=== PATIENT | female | born 1955 | race Caucasian/White ===

== ENCOUNTER 2016-10-12 14:17 | Emergency (ER) | payer OTHER | END 2016-10-12 14:45 | disposition home or self-care (01) | LOC: ER 14:17 | DX: J06.9 Acute upper respiratory infection, unspecified (principal); Z88.5 Allergy status to narcotic agent; Z88.6 Allergy status to analgesic agent; Z88.8 Allergy status to other drugs, medicaments and biological substances | CPT/HCPCS: 96372; 99283; J2930 ==

== ENCOUNTER 2016-10-20 16:08 | Inpatient (IN) | payer OTHER ==
--- NOTE | ~2016-10-20 | CN ---
Consultation Report [facility] [address] [place]. [address] NAME: HOLLI EDGAR : 57 STATUS : ADM IN [facility]#: [id number] AGE: 61 ADM/REG DATE : 10/20/16 MR#: [id number] REPORT SERV DATE: 10/23/16 DICTATED BY: BRADY BARDALES DATE: 10/22/16 REPORT STATUS : Draft TRANSCRIBED BY: MODAriana DATE: 10/22/16 INFECTIOUS DISEASE CONSULT DATE OF CONSULTATION: REASON FOR CONSULT: Meningitis. HISTORY OF PRESENT ILLNESS: A 61-year-old white lady with remote history of seizure disorder, recent sacral spine stimulator for bladder incontinence, was admitted for multiple seizures, suspected status epilepticus. The patient is not a good historian. She does not remember well recent events. I reviewed the chart. I discussed also with her who also is vague regarding also some recent illness. She has been followed up by Dr. Shahid for her history of seizure disorder, but she has not had any seizures in a long time. She does take Keppra. She also tells me she had a hysterectomy in the past because she did not want to be and she takes hormone shots, Depo-Estradiol. The last shot was at the beginning of the month. Maybe about a month ago, she had this procedure for the urine incontinence. It appears that she had a sacral spine stimulator. This was done in [place], [place]. Also recently, she had a "cold." I cannot obtain any details. When asked the patient, she recalls absolutely no symptoms of a cold, but her remembers her complaining of being congested and maybe having a sore throat. She was in the emergency room here at [facility] on the 10/12, with "sinus congestion." She was given 125 mg of methylprednisolone and a prescription for Flonase. There are no investigations at that time. She went to the emergency room apparently because her mother was hospitalized here also with a "cold." She went to see her PCP in [place], [place] around the 10/16 because she was not feeling better and she was given a "two-in-one shot". The day before admission, she started complaining of headache which she tells me was bitemporal. The next day, she started having seizures at home and then in the emergency room she, maybe, vomited once. She was admitted and started on antiepileptic. She also had a dose of Decadron and Dr. Hector with Neurology once had treated her empirically for meningitis. So, she was prescribed acyclovir IV high dose, Rocephin, Zosyn. When I questioned the patient, she reported no symptoms beside a headache. She has specifically reported no fever, no cough, no sore throat, no runny nose, no abdominal pain, no diarrhea or constipation, no dysuria, no skin lesions. Upon admission, laboratory work showed WBC of 19 with no manual differential done, hemoglobin 14, platelets 380,000. Sodium 138, CO2 26, creatinine 0.8. Ammonia 46. Urinalysis with just some proteins. Urine drug screen negative. Chest x-ray, no obvious infiltrates were to support above films. CT of the head without any obvious acute findings. Consultation Report [facility] [address] [place]. [address] NAME: HOLLI EDGAR : 57 STATUS : ADM IN [facility]#: [id number] AGE: 61 ADM/REG DATE : 10/20/16 MR#: [id number] REPORT SERV DATE: 10/23/16 DICTATED BY: BRADY BARDALES DATE: 10/22/16 REPORT STATUS : Draft TRANSCRIBED BY: JOSE MIGUEL DATE: 10/22/16 An LP could not be done until today and was done in Radiology. The first two tubes were clear but on the third because of some patient movement there is some blood. Initially, the cell count was done perhaps from this tube because it showed 19,000 red blood cells and some blood clots and about 208 white blood cells. I asked for a repeat, and it was done from the second tube and it showed 160 white blood cells, with 93% lymphocytes, opening pressure was 19 cm. Red blood cell count in this tube was just 7. Lymphocytes 93%. In the tube 3, the protein was 72, glucose 58 and gram stain showed occasional white blood cells, no organisms. PAST MEDICAL HISTORY: As I mentioned above plus hypertension. She is edentulous. She had a previous implant on her bladder or spine, I am not sure. There is no history of TB. No history of STDs or history of HIV. FAMILY HISTORY: Cancer and heart disease. ALLERGIES: THERE ARE SEVERAL THINGS LISTED IN THE CHART BUT WITHOUT DETAILS OF THE TYPE OF REACTION THAT INCLUDED ASPIRIN, PHENYTOIN, ROBITUSSIN, DIAZEPAM, CODEINE, HYDROCODONE, HYDROCODONE AND GIVEN BENADRYL. MEDICATIONS ON ADMISSION: Interestingly Cipro is listed with a start date of the 10/09, but when I questioned the patient or the they do not recall any antibiotics. I do not know if she really took it. Also listed are diltiazem, Percocet, promethazine, Keppra, Depo Estradiol, and Bactroban ointment. SOCIAL HISTORY: She lives with her and two dogs. She reports no dog bite. Initially, she told me she does not work outdoors but her said she worked on her flower garden. There is no recent travel. No smoking, alcohol, or drugs. The states that there are several sick people at their rastafari. They do not recall any presence of rodents or rodent droppings. The patient reports not eating any raw foods. No exposure to pets, to mosquitos, or ticks. PHYSICAL EXAMINATION: GENERAL: Exam done in presence of female nurse. The patient is alert and awake. She knows the date. She knows she is at [facility]. HEENT: She is edentulous. No oral mucosal lesions were seen. She has some mucus in the right nostril. She has wax in her right ear and the left ear is clean. Extraocular movements of the eyes are intact. She moves all four extremities. No facial asymmetry. No cervical adenopathy. NECK: Supple. LUNGS: Clear to auscultation. No wheezes, rhonchi, or rales. HEART: Regular rhythm without murmurs. ABDOMEN: Soft, nontender. : Nurse reports no genitalia lesions. On the right buttock, she has the pocket of her stimulator device. There is no drainage or dehiscence or swelling or redness. Feet and hands without lesions. Consultation Report [facility] [address] [place]. [address] NAME: HOLLI EDGAR : 57 STATUS : ADM IN [facility]#: [id number] AGE: 61 ADM/REG DATE : 10/20/16 MR#: [id number] REPORT SERV DATE: 10/23/16 DICTATED BY: BRADY BARDALES DATE: 10/22/16 REPORT STATUS : Draft TRANSCRIBED BY: RUFUSL DATE: 02/24/17 LAB WORK: Today creatinine 0.7. WBC 18, hemoglobin 12. ASSESSMENT AND PLAN: 1. Lymphocytic meningitis. 2. Recent multiple seizures with a remote history of seizures. 3. Recent "cold." It is unclear what type of symptoms she describes the congestion. She got the high dose of Solu-Medrol on the 10/10 and then another dose of what sounds like a combination of short and long-acting steroids on the 10/16 plus a steroid spray. 4. She has a recent procedure for bladder incontinence which what sounds like a sacral spine stimulator. DIFFERENTIAL DIAGNOSES: Based on the available data, it seems less likely to indicate a bacterial meningitis. Could be a viral infection including herpes simplex. Also have to consider the relationship with a recent procedure with a parameningeal source although seems less obvious based on exam. Fungal, mycobacterial, or parasitic infection seem less likely. I have to consider noninfectious etiologies such as secondary to medications including antiepileptics or anti-inflammatories. A CT scan of the head did not indicate any presence of sinus disease. Antibiotic-walden, we will continue the acyclovir. We will request additional studies from the CSF and an MRI of the lumbosacral spine. I discussed with the and the nurse. Time spent about two hours. ANUSHKA/JOSE MIGUEL Brady Bardales M.D. / [id number] CC: Anita Pacheco M.D.
--- NOTE | ~2016-10-20 | DS ---
Discharge Summary [facility] [address] [place]. [address] NAME: HOLLI EDGAR : 57 STATUS : DIS IN PAT#: [id number] AGE: 61 ADM/REG DATE : 10/20/16 MR#: [id number] REPORT SERV DATE: 10/29/16 DICTATED BY: ROXANNA SANFORD DATE: 10/28/16 REPORT STATUS : Draft TRANSCRIBED BY: MODL DATE: 10/28/16 ADMISSION DATE: 10/20/2016 DISCHARGE DATE: 10/28/2016 HISTORY OF PRESENT ILLNESS: The patient is a 60-year-old female with a history of hypertension, who presented to the hospital status post a seizure episode. The patient was subsequently admitted on the Hospitalist Service for further management. For further details, please refer to H and P dictated by Dr. Germain on 10/20/2016. HOSPITAL COURSE: Upon presenting in the emergency room, the patient was admitted on the Hospitalist Service for further management. Upon presenting to the emergency room, the patient went into status epilepticus. Status post this activity, Neurology was consulted as was Infectious Disease. Please for further details, refer to consultation notes by Dr. Batista of Infectious Disease dictated on 10/23/2016 and also consultation note by Neurology dictated on 10/20/2016. During hospital course, per weight loss sales consultant's recommendation, the patient subsequently had a lumbar puncture, which came back negative. Also, HSV was ordered, which also came back negative. Neurology, which followed the patient, started the patient on Vimpat 200 mg daily and also increased her Keppra dose to 6500 mg daily. Status post these changes, the patient has not had further seizure episodes during this hospitalization. The patient has been followed by Neurology and Infectious Disease. From Infectious Disease standpoint, the patient was diagnosed with lymphocytic meningitis. Workup has so far been negative. Repeat CT scan of the brain returned negative. Given completion of workup, Neurology has signed off clearing the patient for discharge. Given also negative workup by Infectious Disease, Infectious Disease has cleared the patient for discharge with plans to see the patient in the outpatient setting in one to two weeks. Given completion of workup, given her hemodynamic stability, and given resolution of her seizure activity, the patient will be discharged home today. Plan has been discussed with the patient, who voices understanding and is agreeable with this plan. DISCHARGE DIAGNOSES: 1. Lymphocytic meningitis. 2. Status epilepticus. 3. Seizure disorder. 4. Hypertension. DISCHARGE EXAM: GENERAL: The patient lying in bed, in no acute distress. Appears stated age. HEENT: Normocephalic, atraumatic. Extraocular motors intact. Moist oral mucosa. Anicteric sclerae. Pupils round and reactive to light and accommodation. NECK: Trachea midline and symmetric. No JVD noted. No thyromegaly present. CHEST: No scars noted. Nontender to palpation. CARDIOVASCULAR: Regular rate and rhythm. S1, S2. No murmurs, rubs, or gallops. LUNGS: Clear to auscultation bilaterally. ABDOMEN: Positive bowel sounds. Nontender. Nondistended. Soft and flat. EXTREMITIES: No cyanosis, no clubbing, no edema. NEURO: Alert and oriented x3. No focal deficits appreciated. Discharge Summary [address] [place]. [address] NAME: HOLLI EDGAR : 57 STATUS : DIS IN PAT#: [id number] AGE: 61 ADM/REG DATE : 10/20/16 MR#: [id number] REPORT SERV DATE: 10/29/16 DICTATED BY: ROXANNA SANFORD DATE: 10/28/16 REPORT STATUS : Draft TRANSCRIBED BY: JOSE MIGUEL DATE: 10/28/16 CONSULTANTS: Dr. Batista of Infectious Disease and Dr. Talbert of Neurology. IMAGING: Brain CT with contrast, impression, suspected dural-based nodule in the right posterior fossa. This may be partial volume averaging with the right lateral sinus, but further evaluation with MRI with contrast was in the differential. Consideration includes small meningioma. No intraaxial mass suspected. CT brain without contrast on presentation, impression, mild cerebral atrophy. No acute intracranial process including acute intracranial hemorrhage. PROCEDURES: Lumbar puncture was performed. DISPOSITION: The patient will be discharged home to follow up with Neurology, Infectious Disease, and primary care physician as outpatient. ACTIVITY: As tolerated. DIET: Low-salt diet. Greater than 30 minutes was spent on medication reconciliation, dictation of note, coordination of care, and planning the discharge. CHERYL Roxanna Sanford MD / [id number] CC: MD HARSHA Escalona II
--- NOTE | ~2016-10-20 | EEG ---
Electroencephalogram [facility] [address] [place]. [address] NAME: HOLLI EDGAR : 57 STATUS : ADM IN PAT#: [id number] AGE: 61 ADM/REG DATE : 10/20/16 MR#: [id number] REPORT SERV DATE: 10/22/16 DICTATED BY: DATE: REPORT STATUS : Draft TRANSCRIBED BY: MODL DATE: 10/22/16 NEUROLOGY EEG REPORT CLINICAL INDICATION: Status epilepticus. DESCRIPTION: This EEG was performed using 10/20 electrode placement system. During the EEG study, symmetric background activity was noted with predominant occipital rhythm of roughly 8 hertz. Superimposed mild generalized slowing was seen throughout the EEG study. Otherwise, photic stimulation was performed with appropriate driving response. Hyperventilation was not performed secondary to the patient's medical condition. The patient achieved drowsy state. No focal abnormalities, seizure activity, or seizure discharge was seen during the EEG study. No electrographic seizure was otherwise noted. INTERPRETATION: This EEG study obtained during awake and drowsy state may be considered mildly abnormal secondary to superimposed generalized slowing but otherwise no focal abnormality, seizure activity, or electrographic seizure or seizure discharge was noted during today's EEG study. Negative EEG study does not preclude the diagnosis of seizure disorder. Clinical correlation is recommended. [facility]/MODAriana Gaurav Hector MD / [id number] CC: Willard Menjivar II
--- NOTE | ~2016-10-20 | HP ---
History And Physical [facility] [id number] [facility] [place]. [address] NAME: HOLLI EDGAR : 57 STATUS : REG ER PAT#: [id number] AGE: 60 ADM/REG DATE : 10/20/16 MR#: [id number] REPORT SERV DATE: 10/20/16 DICTATED BY: ELVA FENG DATE: 10/20/16 REPORT STATUS : Draft TRANSCRIBED BY: MODL DATE: 10/20/16 DATE OF ADMISSION: 10/20/2016 The patient is a 60-year-old female, who basically presented to [facility] because of a seizure episode that she initially had at home and then she had subsequently five seizure episodes, some of them were witnessed here in the emergency room, it was a grand mal seizure, and the patient was also complaining of headache before she had that seizure. The seizure started at 8:30 this morning. After seizures, she became lethargic but she is able to open and close her eyes and she is moving. The patient's at the bedside reported that she had seizures 30 years ago, but they were controlled until she started her seizures this morning. She is now, not able to answer any questions. She is lethargic. She will open and close her eyes, but she will not have any other symptoms. PAST MEDICAL HISTORY: Per , history of seizures in the past. The patient of Dr. Shahid. She has history of hypertension. No other cardiac problems. No diabetes. No heart attacks. No strokes in the past. PAST SURGICAL HISTORY: Includes some kind of implant for her urination, maybe spinal stimulator. cannot basically give more history. She also had hysterectomy and bilateral oophorectomy but it was not because of the cancer. SOCIAL HISTORY: No alcohol. No recreational drugs. No smoking. She does not have children. She is disabled. FAMILY HISTORY: Mother had heart problems. Father had history of cancer. ALLERGIES: SHE IS ALLERGIC TO ROBITUSSIN, DIAZEPAM, CODEINE, HYDROCODONE, ASPIRIN, PHENYTOIN, BENADRYL. REVIEW OF SYSTEMS: Unable to perform because the patient is now lethargic, not able to answer any questions. HOME MEDICATION LIST: Pharmacy to review. The patient takes Keppra at home for seizures. PHYSICAL EXAMINATION: GENERAL: Thin female, lethargic, is able to open her eyes and close, but not able to speak. VITAL SIGNS: Blood pressure initially was 201/87 and later on blood pressure was 180/70, temperature 98.7, heart rate 93, respirations 16, and oxygen saturation 97% on room air. HEENT: Head atraumatic, normocephalic. Conjunctivae clear. Pupils are equal and reactive to light. NECK: Supple. Trachea is midline. No supraclavicular or cervical lymphadenopathy. LUNGS: Diminished breath sounds bilaterally. Decreased respiratory effort. CARDIOVASCULAR SYSTEM: Regular rate and rhythm. Point of maximal impulse not displaced. ABDOMEN: Soft, nontender, nondistended. Positive normoactive bowel sounds. EXTREMITIES: No clubbing, cyanosis, or edema. SKIN: Normal color, slightly decreased turgor. History And Physical [address] [address] NAME: HOLLI EDGAR : 57 STATUS : REG ER PAT#: [id number] AGE: 60 ADM/REG DATE : 10/20/16 MR#: [id number] REPORT SERV DATE: 10/20/16 DICTATED BY: ELVA FENG DATE: 10/20/16 REPORT STATUS : Draft TRANSCRIBED BY: JOSE MIGUEL DATE: 10/20/16 NEUROLOGICAL: She is lethargic. She is able to open and close her eyes. Not able to communicate much. LABORATORY RESULTS: Sodium 138, potassium 3.6, chloride 100, carbon dioxide 26, BUN 11, creatinine 0.82, blood sugar 121. White count 19.5, hemoglobin 14.6, hematocrit 42.5, platelet count 382. Urinalysis did not show any evidence of urinary infection. Urine drug screen was negative. Chest x-ray, no acute cardiopulmonary abnormality. CT of the head without contrast showed mild cerebral atrophy. No acute intracranial process. ASSESSMENT AND PLAN: This is a 60-year-old female with a history of seizures in the past, did not have seizures for a long period of time, presented with several episodes of seizures, had a headache before, currently she is lethargic and not able to communicate, but able to open and close her eyes. The patient will need to be observed in [facility] with frequent neuro checks every 1 hour as well as Dr[address] Hector neurologist already saw the patient and she ordered Vimpat intravenously to control her seizures as well as Keppra. She also started the patient on Rocephin and Zosyn and acyclovir. There is a possibility that the patient may be in status epilepticus. Also she wants to do lumbar puncture and she started the patient on antibiotics. Regarding hypertension, we will give her hydralazine as needed if systolic blood pressure will be 160. She will need to have close monitoring in [facility]U. We will also check blood cultures x2 on this patient. My partner will see this patient starting tomorrow morning. MG/MODL Elva Feng M.D. / [id number] CC: John Lopez II
--- NOTE | ~2016-10-20 | CN ---
Consultation Report [facility] [address] [place]. [address] NAME: HOLLI EDGAR : 57 STATUS : ADM IN PAT#: [id number] AGE: 61 ADM/REG DATE : 10/20/16 MR#: [id number] REPORT SERV DATE: 10/21/16 DICTATED BY: DATE: REPORT STATUS : Draft TRANSCRIBED BY: MODL DATE: 10/20/16 DATE OF CONSULTATION: 10/20/2016 TITLE: Neurology Consultation REASON FOR CONSULT: Seizure. HISTORY OF PRESENT ILLNESS: This is a 60-year-old female presented to [facility] on 10/20/2016 secondary to uncontrolled seizure with the patient's reports the patient's seizure occur roughly once every 1 to 1-1/2 hours. Previously, the patient's seizure was well controlled over the past 30 years with the patient being compliant with the seizure medication which was the Keppra. The patient takes a fairly high doses of Keppra 1500 mg p.o. every morning, 1000 mg at noon, and 4000 mg at night. The patient was previously seen by Dr. Madina Shahid with the patient diagnosed with ELENA. The patient previously has had trial of Dilantin, Depakote, and phenobarbital for which the patient's seizure was not well controlled on those medications in the past. The patient's family reports the patient has been sick with upper respiratory infection roughly a week ago with the patient being prescribed with a cough medication and improving symptom, no recent fever was otherwise reported. The patient in between the seizure was not noted to have return to baseline the mental, status with the patient appeared to be lethargic and confused. Otherwise, the family reports the patient has been moving all extremities without significant focal weakness, but generalized weakness was observed. The patient's family denies similar symptoms in the past and denies any other changes in medication other than the recent cough syrup. The patient does complain of a headache overnight prior to hospital presentation, but otherwise no other complaints were noted. The patient does have a bladder stimulator secondary to overactive bladder, but the family is unaware if the device is MRI safe. The patient, otherwise is not taking any other medication besides the Keppra with the family reports the upper respiratory infection has been improving prior to the hospitalization. PAST MEDICAL HISTORY: The patient's past medical history significant for ELENA as well as a bladder stimulator for overactive bladder as well as hypertension. FAMILY HISTORY: Significant for cancer as well as heart disease. SOCIAL HISTORY: She denies tobacco, alcohol, recreational drug usage. ALLERGIES: THE PATIENT WAS NOTED TO HAVE ALLERGY TO ROBITUSSIN, VALIUM, CODEINE, HYDROCODONE, ASPIRIN, DILANTIN, WELL BENADRYL. REVIEW OF SYSTEMS: Unable to be obtained from the patient, but according to family is otherwise negative. PHYSICAL EXAMINATION: Consultation Report [address] [place]. [address] NAME: HOLLI EDGAR : 57 STATUS : ADM IN PAT#: [id number] AGE: 61 ADM/REG DATE : 10/20/16 MR#: [id number] REPORT SERV DATE: 10/21/16 DICTATED BY: DATE: REPORT STATUS : Draft TRANSCRIBED BY: JOSE MIGUEL DATE: 10/20/16 VITAL SIGNS: At time of evaluation, patient was noted to have temperature of 98.7, heart rate of 93, respiration of 16, and blood pressure of 201/87. GENERAL: The patient is a well developed, well nourished, in no acute distress. CARDIOVASCULAR: Regular rate and rhythm. No carotid bruits were otherwise auscultated. Also, carotid bruits were difficult to assess secondary to the patient's positioning. PULMONARY: Clear to auscultation bilaterally. NEUROLOGICAL EXAMINATION: Generally, the patient is obtunded, unable to be aroused, not following commands and minimal verbalization. Severe dysarthria was otherwise noted at time of evaluation. The patient does not follow simple and two-step commands. She is unable to perform registration or recall. Cranial nerves II through XII, pupils equal, round, and reactive to light. At the time of evaluation, left gaze preference was noted on oculocephalic maneuver. The patient was noted to have a horizontal eye movement, blink to threat response was noted to be intact bilaterally. The patient demonstrated a mild facial asymmetry at the time of evaluation, but was noted to have symmetric grimace. Appears to have midline tongue. At the time of evaluation, the patient demonstrated spontaneous movement of the bilateral upper extremities with a semipurposeful movement. The patient also demonstrates spontaneous movement in bilateral lower extremities at the time of evaluation, with the patient demonstrated grimace as well as withdrawal to noxious stimulation in all four extremity. Downgoing toe on bilateral plantar reflexes. Deep tendon reflex was otherwise 2+ throughout. Coordination gait was unable to be evaluated secondary to the patient's current mental status. LABORATORY STUDY: Demonstrates sodium 138, potassium of 3.6, chloride 100, bicarb 26, BUN of 11, creatinine was 0.82, glucose of 121, calcium of 8.9, magnesium of 2.2. White blood cell count of 19.5, hemoglobin of 14.6, hematocrit of 42.5, platelet count of 382. Urinalysis, otherwise demonstrated negative leukocyte esterase, negative nitrite. CT scan of the brain: CT scan of the brain otherwise demonstrated no acute process. Mild generalized atrophy was seen. IMPRESSION: Seizure. Concern for status epilepticus, with the patient's symptoms started around 0830 hours. The events occur roughly once every 1-1/2 hours without significant return to the patient's baseline mental status. The patient was previously diagnosed with juvenile myoclonic epilepsy, with the patient's seizure well controlled over the past 30 years. The patient was previously on Keppra 1500 mg q.a.m., 1000 mg in noon, and 4000 mg at night. With the patient's family reports compliance with medications. The patient does have upper respiratory illness roughly a week ago as well as the headache overnight prior to the seizure and the hospitalization. In addition, the patient was noted to have also elevated blood pressure, concern for possible stroke versus central nervous system infection. We will repeat CT scan of the brain without contrast in the morning, as the patient has bladder stimulator, it is questionable whether or not the patient is able to tolerate MRI imaging. Meanwhile, we are also recommending lumbar puncture by Radiology secondary to recent illness as well as elevated white count. We are also changing Keppra to IV formulation, attention deficit disorder Vimpat to patient's medication regimen. Consultation Report [facility] [id number] [place]. [address] NAME: HOLLI EDGAR KEVIN : 57 STATUS : ADM IN PAT#: [id number] AGE: 61 ADM/REG DATE : 10/20/16 MR#: [id number] REPORT SERV DATE: 10/21/16 DICTATED BY: DATE: REPORT STATUS : Draft TRANSCRIBED BY: MODL DATE: 10/20/16 Secondary to concern for meningitis, we will also provide the patient with the broad- spectrum antibiotic coverage until cerebrospinal fluid results is available. RECOMMENDATION: 1. We will start the patient on Keppra 1500 mg IV q.a.m., 1000 mg IV q. noon, and 4000 mg IV q.h.s. 2. Vimpat 200 mg IV loading dose and then 100 mg IV q.12 hours. 3. Rocephin. Pharmacy to dose. 4. Zosyn: Pharmacy to dose. 5. Acyclovir 10 mg/kg IV q.[address] scan of the brain without contrast on 10/21/2016. 7. Radiology for lumbar puncture. 8. With CSF for protein, glucose, and cell count with differential, HSV PCR, brain stem bacterial culture. 9. We will also send for procalcitonin level, vitamin B12, folate, TSH, ammonia level, free T4 level. 10.We will also all obtain EEG for evaluation. [facility] Gaurav Hector MD / [id number] CC: Willard Menjivar MAX RUSSELL II
[2016-10-20 16:47] LABS: BASOPHILS 0.2 %; BASOPHILS ABSOLUTE 0.03 10/3/uL (0.0-0.16); EOSINOPHILS 0 %; HEMATOCRIT 42.5 % (36.0-48.0); HEMOGLOBIN 14.6 g/dL (12.0-16.0); IMMATURE GRANULOCYTES 0.9 %; IMMATURE GRANULOCYTES ABSOLUTE 0.17 10/3/uL (0.0-0.11); LYMPHOCYTES 7.5 %; LYMPHOCYTES ABSOLUTE 1.47 10/3/uL (0.67-4.30); MEAN CORPUS HGB CONC 34.4 g/dL (32.0-36.0); MEAN CORPUSCULAR HEMOGLOB 30.6 pg (26.0-34.0); MEAN PLATELET VOLUME 8.9 fL (9.2-13.0); MONOCYTES 5.3 %; MONOCYTES ABSOLUTE 1.03 10/3/uL (0.21-1.20); NEUTROPHILS 86.1 %; NEUTROPHILS ABSOLUTE 16.81 10/3/uL (2.02-8.40); PLATELET COUNT 382 10/3/uL (150-400); RBC DISTRIBUTION WIDTH 12.7 % (12.0-16.0); RED CELL COUNT 4.77 10/6/uL (4.0-5.6)
[2016-10-20 16:48] LABS: MANUAL DIFF NO %; MEAN CORPUSCULAR VOLUME 89.1 fL (80-100); WHITE BLOOD CELLS 19.5 10/3/uL (4.5-10.5)
[2016-10-20 17:00] LABS: PROTIME (NOT ORD) 12.9 SEC (12.0-14.5)
[2016-10-20 17:01] LABS: PARTIAL THROMBO TIME 24.8 SEC (22.5-37.2)
[2016-10-20 17:04] LABS: ASCORBIC ACID (UR NOT ORDER) 40 (NEG); BILIRUBIN, URINE NEGATIVE (NEG); ER URINALYSIS TAT 0 Hrs 22 Mins; KETONE, URINE NEGATIVE (NEG); LEUKOCYTE ESTERASE(NOT OR NEG (NEG); NITRITE (URINE) NEG (NEG); WBC (NOT ORDERED) (RFLEX) 1 (0-5)
[2016-10-20 17:08] LABS: ALBUMIN 3.5 G/DL (3.5-5.0); BUN (BLOOD UREA NITROGEN) 11 MG/DL (6-23); CALCIUM, SERUM 8.9 MG/DL (8.5-10.4); CHEST PAIN PROFILE TAT 0 Hrs 26 Mins; CHLORIDE, SERUM 100 MMOL/L (96-112); CO2 (CARBON DIOXIDE) 26 MMOL/L (24-34); CREATININE 0.82 MG/DL (0.55-1.02); DIRECT BILIRUBIN 0.1 MG/DL (0.0-0.4); GFR AFRICAN AMERICAN 91 ML/MIN (>=60); GFR NON AFRICAN AMERICAN 78 ML/MIN (>=60); INDIRECT BILIRUBIN(NOT ORDER) 0.3 MG/DL (0.1-0.9); SGOT(AST) 11 U/L (5-40); SGPT(ALT) 17 U/L (5-65); SODIUM, SERUM 138 MMOL/L (135-148); TOTAL BILIRUBIN 0.4 MG/DL (0-1.2); TOTAL PROTEIN 7.7 G/DL (6.0-8.5); TROPONIN I <0.02 NG/ML (<0.05)
[2016-10-20 17:15] LABS: ALKALINE PHOSPHATASE 176 U/L (45-117); GLUCOSE, SERUM 121 MG/DL (60-99); POTASSIUM, SERUM 3.6 MMOL/L (3.5-5.3)
[2016-10-20 17:47] LABS: AMPHETAMINES (NOT ORD) NEG (NEG); BARBITURATES (NOT ORDERED NEG (NEG); BENZODIAZEPINES (NOT ORD) NEG (NEG); CANNABINOIDS (THC) NEG (NEG); COCAINE (NOT ORDERED) NEG (NEG); OPIATES NEG (NEG); PHENCYCLIDINE(PCP) NEG (NEG); TRICYCLICS NEG (NEG)
[2016-10-20] MEDS ORDERED: BACTROINT (18:02)
[2016-10-20] MEDS ORDERED: CIP2 PO (18:02)
[2016-10-20] MEDS ORDERED: PROMETHAZINE DM SYRP (18:02)
[2016-10-20] MEDS ORDERED: KEPPRA (18:03)
[2016-10-20] MEDS ORDERED: PCET (18:03)
[2016-10-20] MEDS ORDERED: DEPO ESTRADIOL (18:04)
[2016-10-20] MEDS ORDERED: CARD120 (18:04)
[2016-10-21 05:44] LABS: BASOPHILS 0.1 %; BASOPHILS ABSOLUTE 0.01 10/3/uL (0.0-0.16); EOSINOPHILS 0 %; HEMATOCRIT 42.6 % (36.0-48.0); HEMOGLOBIN 14.8 g/dL (12.0-16.0); IMMATURE GRANULOCYTES 0.5 %; IMMATURE GRANULOCYTES ABSOLUTE 0.08 10/3/uL (0.0-0.11); LYMPHOCYTES 5.9 %; LYMPHOCYTES ABSOLUTE 0.96 10/3/uL (0.67-4.30); MEAN CORPUS HGB CONC 34.7 g/dL (32.0-36.0); MEAN CORPUSCULAR HEMOGLOB 31.3 pg (26.0-34.0); MEAN CORPUSCULAR VOLUME 90.1 fL (80-100); MEAN PLATELET VOLUME 8.9 fL (9.2-13.0); MONOCYTES 1.2 %; MONOCYTES ABSOLUTE 0.19 10/3/uL (0.21-1.20); NEUTROPHILS 92.3 %; NEUTROPHILS ABSOLUTE 15.11 10/3/uL (2.02-8.40); PLATELET COUNT 325 10/3/uL (150-400); RBC DISTRIBUTION WIDTH 12.4 % (12.0-16.0); RED CELL COUNT 4.73 10/6/uL (4.0-5.6); WHITE BLOOD CELLS 16.4 10/3/uL (4.5-10.5)
[2016-10-21 05:50] LABS: MANUAL DIFF NO %
[2016-10-21 06:30] LABS: BUN (BLOOD UREA NITROGEN) 14 MG/DL (6-23); CALCIUM, SERUM 8.8 MG/DL (8.5-10.4); CHLORIDE, SERUM 105 MMOL/L (96-112); CO2 (CARBON DIOXIDE) 25 MMOL/L (24-34); CREATININE 0.75 MG/DL (0.55-1.02); FOLATE 39.1 NG/ML (>5.2); FREE T4 1.05 NG/DL (0.76-1.46); GFR AFRICAN AMERICAN 100 ML/MIN (>=60); GFR NON AFRICAN AMERICAN 87 ML/MIN (>=60); GLUCOSE, SERUM 156 MG/DL (60-99); POTASSIUM, SERUM 4.1 MMOL/L (3.5-5.3); SODIUM, SERUM 141 MMOL/L (135-148); ULTRASENSITIVE TSH 0.209 MCIU/ML (0.358-3.740)
[2016-10-21 12:13] LABS: PROCALCITONIN <0.05 ng/mL (<0.5)
[2016-10-22 05:18] LABS: BASOPHILS 0.1 %; BASOPHILS ABSOLUTE 0.01 10/3/uL (0.0-0.16); EOSINOPHILS 0 %; HEMATOCRIT 37.4 % (36.0-48.0); HEMOGLOBIN 12.5 g/dL (12.0-16.0); IMMATURE GRANULOCYTES 0.5 %; LYMPHOCYTES 12.7 %; LYMPHOCYTES ABSOLUTE 2.35 10/3/uL (0.67-4.30); MANUAL DIFF NO %; MEAN CORPUS HGB CONC 33.4 g/dL (32.0-36.0); MEAN CORPUSCULAR HEMOGLOB 30.7 pg (26.0-34.0); MEAN CORPUSCULAR VOLUME 91.9 fL (80-100); MEAN PLATELET VOLUME 8.8 fL (9.2-13.0); MONOCYTES 8.5 %; MONOCYTES ABSOLUTE 1.57 10/3/uL (0.21-1.20); NEUTROPHILS 78.2 %; NEUTROPHILS ABSOLUTE 14.45 10/3/uL (2.02-8.40); PLATELET COUNT 329 10/3/uL (150-400); RBC DISTRIBUTION WIDTH 12.8 % (12.0-16.0); RED CELL COUNT 4.07 10/6/uL (4.0-5.6); WHITE BLOOD CELLS 18.5 10/3/uL (4.5-10.5)
[2016-10-22 05:19] LABS: BUN (BLOOD UREA NITROGEN) 12 MG/DL (6-23); CHLORIDE, SERUM 109 MMOL/L (96-112); CO2 (CARBON DIOXIDE) 25 MMOL/L (24-34); GFR AFRICAN AMERICAN 109 ML/MIN (>=60); GFR NON AFRICAN AMERICAN 94 ML/MIN (>=60); POTASSIUM, SERUM 3.5 MMOL/L (3.5-5.3); SODIUM, SERUM 143 MMOL/L (135-148)
[2016-10-22 05:21] LABS: GLUCOSE, SERUM 107 MG/DL (60-99)
[2016-10-22 14:50] LABS: CSF BASO 0 % (NO REF RANGE); CSF EOS 0 % (0-1); CSF LYMPH (NOT ORD) 85 % (28-96); CSF MONO 2 % (16-56); CSF SEGS (NOT ORD) 13 % (0-7)
[2016-10-22 14:51] LABS: CSF COLOR (NOT ORD) RED (COLORLESS); CSF RBC (NOT ORD) 19000 MM3 (NO REFERENCE)
[2016-10-22 14:52] LABS: CSF APPEARANCE (NOT ORD) CLOUDY (CLEAR); CSF XANTHROCHROMIA NEG (NEG)
[2016-10-22 14:53] LABS: GLUCOSE CSF 58 MG/DL (45-70); TOTAL PROTEIN, CSF 71.9 MG/DL (15-45)
[2016-10-22 14:54] LABS: CSF WBC (NOT ORD) 209 /uL (0-10)
[2016-10-22 17:05] LABS: CSF APPEARANCE (NOT ORD) CLEAR (CLEAR); CSF BASO 0 % (NO REF RANGE); CSF COLOR (NOT ORD) COLORLESS (COLORLESS); CSF EOS 0 % (0-1); CSF LYMPH (NOT ORD) 93 % (28-96); CSF MONO 3 % (16-56); CSF SEGS (NOT ORD) 4 % (0-7); CSF XANTHROCHROMIA NEG (NEG)
[2016-10-22 17:06] LABS: CSF RBC (NOT ORD) 7 MM3 (NO REFERENCE); CSF WBC (NOT ORD) 160 /uL (0-10)
[2016-10-23 04:17] LABS: NAPA <0.6 ug/mL (6.0-20.0); PROCAINAMIDE <0.4 ug/mL (4.0-10.0)
[2016-10-23 04:36] LABS: BASOPHILS 0.1 %; BASOPHILS ABSOLUTE 0.02 10/3/uL (0.0-0.16); EOSINOPHILS 0.1 %; EOSINOPHILS ABSOLUTE 0.02 10/3/uL (0.0-0.53); HEMATOCRIT 41.1 % (36.0-48.0); HEMOGLOBIN 13.8 g/dL (12.0-16.0); IMMATURE GRANULOCYTES 0.7 %; LYMPHOCYTES 18.8 %; LYMPHOCYTES ABSOLUTE 2.67 10/3/uL (0.67-4.30); MANUAL DIFF NO %; MEAN CORPUS HGB CONC 33.6 g/dL (32.0-36.0); MEAN CORPUSCULAR HEMOGLOB 30.5 pg (26.0-34.0); MEAN CORPUSCULAR VOLUME 90.9 fL (80-100); MEAN PLATELET VOLUME 8.8 fL (9.2-13.0); MONOCYTES 10.4 %; MONOCYTES ABSOLUTE 1.48 10/3/uL (0.21-1.20); NEUTROPHILS 69.9 %; NEUTROPHILS ABSOLUTE 9.88 10/3/uL (2.02-8.40); PLATELET COUNT 331 10/3/uL (150-400); RBC DISTRIBUTION WIDTH 13.3 % (12.0-16.0); RED CELL COUNT 4.52 10/6/uL (4.0-5.6); WHITE BLOOD CELLS 14.2 10/3/uL (4.5-10.5)
[2016-10-23 04:54] LABS: CALCIUM, SERUM 8.1 MG/DL (8.5-10.4); CHLORIDE, SERUM 105 MMOL/L (96-112); CO2 (CARBON DIOXIDE) 27 MMOL/L (24-34); CREATININE 0.68 MG/DL (0.55-1.02); GFR AFRICAN AMERICAN 110 ML/MIN (>=60); GFR NON AFRICAN AMERICAN 95 ML/MIN (>=60); GLUCOSE, SERUM 109 MG/DL (60-99); POTASSIUM, SERUM 3.8 MMOL/L (3.5-5.3); SODIUM, SERUM 141 MMOL/L (135-148)
[2016-10-23 04:55] LABS: BUN (BLOOD UREA NITROGEN) 8 MG/DL (6-23)
[2016-10-23] MEDS ORDERED: DEPO-ESTRADIO1 MG/ML IM (13:25)
[2016-10-23] MEDS ORDERED: CARD120 PO (13:25)
[2016-10-23] MEDS ORDERED: KEPPRA1000 MG PO ×2 (13:26)
[2016-10-23] MEDS ORDERED: KEPPRA750 MG PO (13:26)
[2016-10-23] MEDS ORDERED: BACTROINT TOP (13:28)
[2016-10-23] MEDS ORDERED: PCET PO (13:29)
[2016-10-23] MEDS ORDERED: PROMETHAZINE PO (13:31)
[2016-10-23] MEDS ORDERED: DEXTROMETHORPHAN PO (13:31)
[2016-10-24 06:00] LABS: BASOPHILS 0.3 %; BASOPHILS ABSOLUTE 0.03 10/3/uL (0.0-0.16); EOSINOPHILS 2.1 %; EOSINOPHILS ABSOLUTE 0.21 10/3/uL (0.0-0.53); HEMOGLOBIN 12.9 g/dL (12.0-16.0); IMMATURE GRANULOCYTES 0.8 %; IMMATURE GRANULOCYTES ABSOLUTE 0.08 10/3/uL (0.0-0.11); LYMPHOCYTES 26.6 %; LYMPHOCYTES ABSOLUTE 2.69 10/3/uL (0.67-4.30); MEAN CORPUS HGB CONC 33.1 g/dL (32.0-36.0); MEAN CORPUSCULAR HEMOGLOB 30.6 pg (26.0-34.0); MEAN CORPUSCULAR VOLUME 92.6 fL (80-100); MEAN PLATELET VOLUME 8.8 fL (9.2-13.0); MONOCYTES 9.8 %; MONOCYTES ABSOLUTE 0.99 10/3/uL (0.21-1.20); NEUTROPHILS 60.4 %; NEUTROPHILS ABSOLUTE 6.11 10/3/uL (2.02-8.40); PLATELET COUNT 317 10/3/uL (150-400); RBC DISTRIBUTION WIDTH 13.3 % (12.0-16.0); RED CELL COUNT 4.21 10/6/uL (4.0-5.6); WHITE BLOOD CELLS 10.1 10/3/uL (4.5-10.5)
[2016-10-24 06:17] LABS: MANUAL DIFF NO %
[2016-10-24 06:21] LABS: BUN (BLOOD UREA NITROGEN) 6 MG/DL (6-23); CALCIUM, SERUM 8.1 MG/DL (8.5-10.4); CHLORIDE, SERUM 107 MMOL/L (96-112); CO2 (CARBON DIOXIDE) 26 MMOL/L (24-34); CREATININE 0.62 MG/DL (0.55-1.02); GFR AFRICAN AMERICAN 114 ML/MIN (>=60); GFR NON AFRICAN AMERICAN 98 ML/MIN (>=60); GLUCOSE, SERUM 100 MG/DL (60-99); PHOSPHORUS, SERUM 2.6 MG/DL (2.5-4.5); POTASSIUM, SERUM 3.7 MMOL/L (3.5-5.3); SGOT(AST) 15 U/L (5-40); SGPT(ALT) 20 U/L (5-65); SODIUM, SERUM 142 MMOL/L (135-148); TOTAL BILIRUBIN 0.4 MG/DL (0-1.2)
[2016-10-24 06:22] LABS: A/G RATIO 0.7 (0.7-1.9); ALBUMIN 2.4 G/DL (3.5-5.0); ALKALINE PHOSPHATASE 113 U/L (45-117); GLOBULIN 3.4 G/DL (2.5-4.1); TOTAL PROTEIN 5.8 G/DL (6.0-8.5)
[2016-10-25 05:08] LABS: HEMATOCRIT 36.3 % (36.0-48.0); HEMOGLOBIN 12.1 g/dL (12.0-16.0); MEAN CORPUS HGB CONC 33.3 g/dL (32.0-36.0); MEAN CORPUSCULAR HEMOGLOB 31.3 pg (26.0-34.0); MEAN CORPUSCULAR VOLUME 93.8 fL (80-100); MEAN PLATELET VOLUME 8.9 fL (9.2-13.0); PLATELET COUNT 274 10/3/uL (150-400); RBC DISTRIBUTION WIDTH 13.2 % (12.0-16.0); RED CELL COUNT 3.87 10/6/uL (4.0-5.6); WHITE BLOOD CELLS 11.1 10/3/uL (4.5-10.5)
[2016-10-25 05:17] LABS: MANUAL DIFF YES %
[2016-10-25 05:22] LABS: ALBUMIN 2.3 G/DL (3.5-5.0); BUN (BLOOD UREA NITROGEN) 7 MG/DL (6-23); CALCIUM, SERUM 8.2 MG/DL (8.5-10.4); CHLORIDE, SERUM 109 MMOL/L (96-112); CO2 (CARBON DIOXIDE) 24 MMOL/L (24-34); CREATININE 0.57 MG/DL (0.55-1.02); GFR AFRICAN AMERICAN 117 ML/MIN (>=60); GFR NON AFRICAN AMERICAN 101 ML/MIN (>=60); GLUCOSE, SERUM 105 MG/DL (60-99); PHOSPHORUS, SERUM 2.2 MG/DL (2.5-4.5); POTASSIUM, SERUM 3.8 MMOL/L (3.5-5.3); SODIUM, SERUM 143 MMOL/L (135-148)
[2016-10-25 07:04] LABS: EOSINOPHILS 2 %; EOSINOPHILS ABSOLUTE (CALC) 0.22 10/3/uL (0.0-0.53); LYMPHOCYTES 22 %; LYMPHOCYTES ABSOLUTE (CALC) 2.44 10/3/uL (0.67-4.30); MONOCYTES 10 %; MONOCYTES ABSOLUTE (CALC) 1.11 10/3/uL (0.21-1.20); NEUTROPHILS ABSOLUTE (CALC) 7.33 10/3/uL (2.02-8.40); PLATELET ESTIMATE ADQ (ADEQUATE); RBC MORPHOLOGY NORM (NORMAL); SEGMENTED NEUTROPHIL (0) 66 %; TOTAL NUCLEATED CELLS 100
[2016-10-26 05:22] LABS: BASOPHILS 0.3 %; BASOPHILS ABSOLUTE 0.03 10/3/uL (0.0-0.16); EOSINOPHILS 3.8 %; EOSINOPHILS ABSOLUTE 0.39 10/3/uL (0.0-0.53); HEMATOCRIT 36.3 % (36.0-48.0); IMMATURE GRANULOCYTES 0.6 %; IMMATURE GRANULOCYTES ABSOLUTE 0.06 10/3/uL (0.0-0.11); LYMPHOCYTES 25.6 %; LYMPHOCYTES ABSOLUTE 2.59 10/3/uL (0.67-4.30); MEAN CORPUS HGB CONC 33.1 g/dL (32.0-36.0); MEAN CORPUSCULAR HEMOGLOB 30.8 pg (26.0-34.0); MEAN CORPUSCULAR VOLUME 93.3 fL (80-100); MONOCYTES 12.6 %; MONOCYTES ABSOLUTE 1.28 10/3/uL (0.21-1.20); NEUTROPHILS 57.1 %; NEUTROPHILS ABSOLUTE 5.78 10/3/uL (2.02-8.40); PLATELET COUNT 278 10/3/uL (150-400); RED CELL COUNT 3.89 10/6/uL (4.0-5.6); WHITE BLOOD CELLS 10.1 10/3/uL (4.5-10.5)
[2016-10-26 05:23] LABS: MANUAL DIFF NO %
[2016-10-26 05:47] LABS: A/G RATIO 0.7 (0.7-1.9); ALBUMIN 2.5 G/DL (3.5-5.0); ALKALINE PHOSPHATASE 103 U/L (45-117); BUN (BLOOD UREA NITROGEN) 6 MG/DL (6-23); CALCIUM, SERUM 8.6 MG/DL (8.5-10.4); CHLORIDE, SERUM 106 MMOL/L (96-112); CO2 (CARBON DIOXIDE) 28 MMOL/L (24-34); CREATININE 0.64 MG/DL (0.55-1.02); GFR AFRICAN AMERICAN 112 ML/MIN (>=60); GFR NON AFRICAN AMERICAN 97 ML/MIN (>=60); GLOBULIN 3.4 G/DL (2.5-4.1); GLUCOSE, SERUM 97 MG/DL (60-99); SGPT(ALT) 16 U/L (5-65); SODIUM, SERUM 142 MMOL/L (135-148); TOTAL BILIRUBIN 0.5 MG/DL (0-1.2); TOTAL PROTEIN 5.9 G/DL (6.0-8.5)
[2016-10-26 05:53] LABS: PHOSPHORUS, SERUM 3.3 MG/DL (2.5-4.5); SGOT(AST) 13 U/L (5-40)
[2016-10-27 06:42] LABS: BUN (BLOOD UREA NITROGEN) 5 MG/DL (6-23); CALCIUM, SERUM 8.1 MG/DL (8.5-10.4); CHLORIDE, SERUM 107 MMOL/L (96-112); CO2 (CARBON DIOXIDE) 29 MMOL/L (24-34); CREATININE 0.66 MG/DL (0.55-1.02); GFR AFRICAN AMERICAN 111 ML/MIN (>=60); GFR NON AFRICAN AMERICAN 96 ML/MIN (>=60); GLUCOSE, SERUM 99 MG/DL (60-99); SODIUM, SERUM 142 MMOL/L (135-148)
[2016-10-27 06:43] LABS: POTASSIUM, SERUM 4.9 MMOL/L (3.5-5.3)
[2016-10-27 13:36] LABS: HSV DNA TYPE 1 Not Detected (NOTDET); HSV DNA TYPE 2 Not Detected (NOTDET)
[2016-10-28 05:21] LABS: BASOPHILS 0.6 %; BASOPHILS ABSOLUTE 0.06 10/3/uL (0.0-0.16); EOSINOPHILS 2.7 %; EOSINOPHILS ABSOLUTE 0.26 10/3/uL (0.0-0.53); HEMOGLOBIN 12.1 g/dL (12.0-16.0); IMMATURE GRANULOCYTES 0.5 %; IMMATURE GRANULOCYTES ABSOLUTE 0.05 10/3/uL (0.0-0.11); LYMPHOCYTES 36.6 %; LYMPHOCYTES ABSOLUTE 3.48 10/3/uL (0.67-4.30); MEAN CORPUS HGB CONC 33.6 g/dL (32.0-36.0); MEAN CORPUSCULAR HEMOGLOB 30.4 pg (26.0-34.0); MONOCYTES 7.1 %; MONOCYTES ABSOLUTE 0.67 10/3/uL (0.21-1.20); NEUTROPHILS 52.5 %; NEUTROPHILS ABSOLUTE 4.98 10/3/uL (2.02-8.40); PLATELET COUNT 316 10/3/uL (150-400); RBC DISTRIBUTION WIDTH 12.9 % (12.0-16.0); RED CELL COUNT 3.98 10/6/uL (4.0-5.6); WHITE BLOOD CELLS 9.5 10/3/uL (4.5-10.5)
[2016-10-28 05:27] LABS: MANUAL DIFF NO %; MEAN CORPUSCULAR VOLUME 90.5 fL (80-100)
[2016-10-28 05:44] LABS: A/G RATIO 0.7 (0.7-1.9); ALBUMIN 2.5 G/DL (3.5-5.0); ALKALINE PHOSPHATASE 109 U/L (45-117); BUN (BLOOD UREA NITROGEN) 7 MG/DL (6-23); CALCIUM, SERUM 8.5 MG/DL (8.5-10.4); CHLORIDE, SERUM 105 MMOL/L (96-112); CO2 (CARBON DIOXIDE) 27 MMOL/L (24-34); CREATININE 0.63 MG/DL (0.55-1.02); GFR AFRICAN AMERICAN 113 ML/MIN (>=60); GFR NON AFRICAN AMERICAN 97 ML/MIN (>=60); GLOBULIN 3.7 G/DL (2.5-4.1); GLUCOSE, SERUM 95 MG/DL (60-99); POTASSIUM, SERUM 4.3 MMOL/L (3.5-5.3); SGOT(AST) 7 U/L (5-40); SGPT(ALT) 19 U/L (5-65); SODIUM, SERUM 141 MMOL/L (135-148); TOTAL BILIRUBIN 0.6 MG/DL (0-1.2); TOTAL PROTEIN 6.2 G/DL (6.0-8.5)
[2016-10-28] MEDS ORDERED: PRIN20 PO (11:23)
[2016-10-28] MEDS ORDERED: VIMPAT100 MG PO (11:23)
[2016-10-28] MEDS ORDERED: LOP25 PO (11:24)
[2016-10-28 14:54] LABS: ROCKY MTN SPOTTED FEVER AB IGG <1:64 (LTD64); ROCKY MTN SPOTTED FEVER AB IGM <1:64 (LTD64)
== END 2016-10-28 15:06 | disposition home or self-care (01) | DRG 76 ==
LOC: ER 16:08 → IMCU 19:17 → 2SO 10-23 12:35
PROVIDERS: Emergency Medicine; Hospitalist; Internal Medicine; Internal Medicine Infectious Disease
PROC: 009U3ZX Drainage of Spinal Canal, Percutaneous Approach, Diagnostic (ICD-10-PCS; principal; 2016-10-22)
PROC: B01B1ZZ Fluoroscopy of Spinal Cord using Low Osmolar Contrast (ICD-10-PCS; 2016-10-22)
DX: A87.2 Lymphocytic choriomeningitis (principal); G40.401 Other generalized epilepsy and epileptic syndromes, not intractable, with status epilepticus; I10 Essential (primary) hypertension; Z23 Encounter for immunization; R32 Unspecified urinary incontinence; Z88.8 Allergy status to other drugs, medicaments and biological substances; Z88.6 Allergy status to analgesic agent; Z88.5 Allergy status to narcotic agent; Z98.890 Other specified postprocedural states; Z82.49 Family history of ischemic heart disease and other diseases of the circulatory system
CPT/HCPCS: 62270; 70450; 70460; 71010; 77003; 80048; 80053; 80069; 80076; 80192; 80305; 81001; 82140; 82607; 82746; 82945; 82962; 83735; 84100; 84145; 84157; 84439; 84443; 84484; 85025; 85610; 85730; 86592; 86666; 86666-59; 86757; 86757-59; 87015; 87040; 87070; 87102; 87116; 87205; 87327; 87449; 87493; 87493-59; 87529; 87529-59; 87641; 89051; 90686; 95816; 96374; 96375; 99285; A9270-GY; C9254; G0008; J0133; J0290; J0360; J1885; J1953; J2250; J2405; J2543; Q9967